=== PATIENT | female | born 1975 | race Two or more races ===

== ENCOUNTER 2024-08-12 08:47 | Inpatient (IN) | payer BC, OTHER ==
[~2024-08-12] VITALS: Ht 162.6 cm; Wt 66.3 kg
[2024-08-12 09:49] LABS: Basophils # (auto) 0.1 10 ^3/uL (0-0.2); Basophils % (auto) 0.7 % (0.0-2.0); Eosinophils # (auto) 0 10 ^3/uL (0-0.8); Eosinophils % (auto) 0.6 % (0.0-7.0); Hematocrit 38.8 % (36.0-46.0); Hemoglobin 12.7 g/dL (12.2-16.2); Lymphocytes # (auto) 1.4 10 ^3/uL (0.4-5.4); Lymphocytes % (auto) 18.4 % (10.0-50.0); Mean Corpuscular Hemoglobin 28.4 pg (28.0-32.0); Mean Corpuscular Hgb Conc. 32.9 g/dL (32.0-36.0); Mean Corpuscular Volume 86.3 fL (80.0-100.0); Monocytes # (auto) 0.4 10 ^3/uL (0-1.3); Monocytes % (auto) 5.1 % (0.0-12.0); Neutrophils # (auto) 5.9 10 ^3/uL (1.6-8.6); Neutrophils % (auto) 75.2 % (37.0-80.0); Platelet Count (auto) 343 10^3/uL (140-450); Red Blood Cells 4.49 10^6/uL (4.0-5.20); Red Cell Distribution Width 14.6 % (11.8-14.3); White Blood Cell 7.8 10^3/uL (4.4-10.8)
[2024-08-12 10:29] LABS: Alanine Aminotransferase 15 U/L (7-40); Albumin 4.5 g/dL (3.2-4.8); Alkaline Phosphatase 72 U/L (46-116); Anion Gap 4 (5-15); Aspartate Aminotransferase 12 U/L (13-40); BUN/Creatinine Ratio 10.5 (10.0-20.0); Blood Urea Nitrogen 9 mg/dL (9-23); Calcium 9.2 mg/dL (8.7-10.4); Carbon Dioxide 24 mmol/L (20-30); Chloride 108 mmol/L (98-107); Glucose 89 mg/dL (74-106); Magnesium 2.1 mg/dL (1.6-2.6); Potassium 3.8 mmol/L (3.5-5.1); Sodium 136 mmol/L (136-145)
[2024-08-12 10:30] LABS: Bilirubin, Total 0.7 mg/dL (0.2-1.0); Total Protein 7.4 g/dL (5.7-8.2)
[2024-08-12] MEDS: NITROGLYCERIN 0.4 MG SL TAB SL ONE (10:37)
[2024-08-12] MEDS: ASPirin 325 MG TAB PO ONE (10:38)
[2024-08-12 12:00] VITALS: PULSE 58; RESP 16; O2SAT 99
[2024-08-12] MEDS ORDERED: DOCUSATE SOD 100 MG CAP PO PRN (15:15)
[2024-08-12] MEDS ORDERED: MORPHINE SULFATE INJ 2 MG/ml SYRG IV PRN (15:15)
[2024-08-12] MEDS ORDERED: ONDANSETRON HCL 4 MG/2 ML VIAL IV PRN (15:15)
[2024-08-12] MEDS ORDERED: NITROGLYCERIN 0.4 MG SL TAB SL PRN (15:15)
[2024-08-12] MEDS ORDERED: HYDROcodone-ACET 5/325MG TAB PO PRN (15:15)
[2024-08-12 19:30] VITALS: RESP 17; O2SAT 98
[2024-08-13 03:09] VITALS: BP 125/90; PULSE 65; RESP 16; TEMP 98.5; O2SAT 95
[2024-08-13 05:00] VITALS: BP 121/82; PULSE 63; RESP 15; TEMP 98.4; O2SAT 96
[2024-08-13 08:00] VITALS: PULSE 69
[2024-08-13 09:00] VITALS: BP 120/76; PULSE 79; RESP 17; TEMP 98.2; O2SAT 96
[2024-08-13] MEDS: ACETAMINOPHEN 325 MG TAB PO PRN (11:11)
[2024-08-13 13:00] VITALS: BP 122/83; PULSE 69; RESP 17; TEMP 98.1; O2SAT 93
[2024-08-13 16:56] VITALS: BP 117/81; PULSE 71; RESP 17; TEMP 98.1; O2SAT 97
== END 2024-08-13 17:40 | disposition home or self-care (01) | DRG 313 ==
LOC: ER 08:47 → TELE 15:17 → TELE-CENTR 08-13 02:17
PROVIDERS: ADMIT Internal Medicine; ATTEND Internal Medicine
DX: R07.89 Other chest pain (principal); I10 Essential (primary) hypertension; E03.9 Hypothyroidism, unspecified; F17.200 Nicotine dependence, unspecified, uncomplicated
CPT/HCPCS: 36415; 71045; 80053; 83735; 83880; 84484; 85025; 93005; 93306; 99291; G0378